=== PATIENT | male | born 1975 | race Hispanic/Latino ===

== ENCOUNTER 2020-10-03 17:25 | Emergency (ER) | payer OTHER ==
[2020-10-03 18:55] LABS: BASOPHILS % (AUTO) 0.4 % (0.0-5.0); EOSINOPHILS % (AUTO) 1.3 % (0.0-8.0); HEMATOCRIT 50.5 % (42-54); LYMPHOCYTES % (AUTO) 16.3 % (21.0-51.0); MEAN CORPUSCULAR HEMOGLOBIN 31.1 pg (27.0-33.0); MEAN CORPUSCULAR HGB CONC 35.6 g/dL (32.0-36.0); MEAN CORPUSCULAR VOLUME 87.4 fL (79-99); NEUTROPHILS % (AUTO) 70.5 % (40.0-77.0); PLATELET COUNT (AUTO) 75 K/uL (130-400); RED BLOOD CELL COUNT(AUTO) 5.78 MIL/uL (4.50-6.20); RED CELL DISTRIBUTION WIDTH 13.2 % (11.0-15.5); WHITE BLOOD COUNT (AUTO) 7.9 K/uL (4.8-10.8)
[2020-10-03 19:02] LABS: RAPID GROUP A STREP NEGATIVE (NEGATIVE)
[2020-10-03] MEDS ORDERED: SODIUM CHLORIDE 0.9% 1000ML 1,000 ML IV ONE (20:55)
[2020-10-03] MEDS ORDERED: MECLIZINE HCL 25 MG TABLET ONE (20:56)
[2020-10-03 22:14] LABS: POTASSIUM 3.9 mmol/L (3.5-5.1)
[2020-10-03 22:19] LABS: ALBUMIN 3.1 g/dL (3.5-5.0); BILIRUBIN,TOTAL 2.1 mg/dL (0.2-1.0); TOTAL PROTEIN, SERUM 7.1 g/dL (6.0-8.3)
== END 2020-10-03 22:43 | disposition home or self-care (01) ==
LOC: EDH 17:25
DX: E86.0 Dehydration (principal); R42 Dizziness and giddiness; R50.9 Fever, unspecified; J02.9 Acute pharyngitis, unspecified; Z20.822 Contact with and (suspected) exposure to COVID-19
CPT/HCPCS: 36415; 70450; 71045; 80053; 82550; 83605; 84484; 85025; 87040; 87426; 87804 ×2; 87880; 93005; 96360; 96361; 99285; J7030; U0003

== ENCOUNTER 2022-12-07 18:42 | Emergency (ER) | payer OTHER ==
[~2022-12-07] VITALS: Ht 165.1 cm; Wt 104.3 kg
[2022-12-07] MEDS ORDERED: AMOX1TAB16 PO (22:26)
[2022-12-07] MEDS ORDERED: KETO10 PO (22:26)
[2022-12-07] MEDS ORDERED: CEFTRIAXONE 1G VIAL IM ONE (22:30)
[2022-12-07] MEDS ORDERED: KETOROLAC 30MG VIAL (30MG/ML) IM ONE (22:30)
[2022-12-07 23:24] VITALS: BP 135/95
== END 2022-12-07 23:31 | disposition home or self-care (01) ==
LOC: EDH 18:42
DX: K11.20 Sialoadenitis, unspecified (principal); Z90.49 Acquired absence of other specified parts of digestive tract
CPT/HCPCS: 99284; 87880; 96372; J0696; J1885